=== PATIENT | male | born 1955 | race Caucasian/White ===

== ENCOUNTER → 2019-01-03 | Outpatient (CLI) | payer OTHER ==
[~2019-01-03] MED LIST: ADULT LOW DOSE81 MG PO; ALLOPURINOL 30300 M1; AMLODIPINE PO; BYSTOLIC10 MG; CARDURA4 MG; CHLORZOXAZONE500 MG; CLEOCIN HCL150 MG PO; DIOVAN320 MG; HYDROCODON-ACE1 EAC5; HYTRIN10 MG PO; KEFLEX250 M1 PO; LASIX 20 MG TAB20 MG; NEURONTIN 300300 M1; PERCOCET 5-3251 EACH PO; PERCOCET 7.5-31 EACH PO; PROCARDIA XL90 MG
[2019-01-03 15:53] LABS: ABSOLUTE BASOPHILS 0.1 thou/uL (0.0-0.2); ABSOLUTE EOSINOPHILS 0.1 thou/uL (0.0-0.7); ABSOLUTE LYMPHOCYTES 1.9 thou/uL (0.8-5.3); ABSOLUTE MONOCYTES 0.8 thou/uL (0.0-1.2); ABSOLUTE NEUTROPHILS 10.5 thou/uL (1.6-8.1); BASOPHILS 0.8 %; EOSINOPHILS 0.9 %; HEMATOCRIT 40.5 % (42.0-52.0); HEMOGLOBIN 13.8 gm/dL (14.0-18.0); LYMPHOCYTES 14.1 %; MCH 30.9 pg (26.0-34.0); MCV 90.8 fL (80.0-100.0); MONOCYTES 6.2 %; MPV 9.2 fl. (7.2-11.1); NUCLEATED RBCS 0 /100WBC; PLATELET COUNT* 207 thou/uL (150-400); RBC 4.46 mil/uL (4.50-6.00); RDW-CV 14.8 % (10.5-14.5); WBC 13.5 thou/uL (4.0-11.0)
[2019-01-03 16:11] LABS: ALBUMIN 3.7 g/dL (3.4-5.0); CALCIUM 9.4 mg/dL (8.5-10.1); CREATININE 1.5 mg/dL (0.6-1.3); POTASSIUM 3.9 mmol/L (3.5-5.1); TOTAL BILIRUBIN 0.9 mg/dL (<0.1-1.0); TOTAL PROTEIN 7.6 g/dL (6.4-8.2)
== END ==
LOC: M.LAB 15:30 → M.CT 16:00
PROVIDERS: Family Medicine
DX: I71.4 Abdominal aortic aneurysm, without rupture (principal); K76.0 Fatty (change of) liver, not elsewhere classified; N28.1 Cyst of kidney, acquired; R19.07 Generalized intra-abdominal and pelvic swelling, mass and lump; M47.816 Spondylosis without myelopathy or radiculopathy, lumbar region; M96.1 Postlaminectomy syndrome, not elsewhere classified; Z90.49 Acquired absence of other specified parts of digestive tract

== ENCOUNTER 2019-05-13 15:58 | Inpatient (IN) | payer OTHER ==
[~2019-05-13] VITALS: Ht 172.7 cm; Wt 93.9 kg
[~2019-05-13 15:58] MED LIST changes: -ALLOPURINOL 30300 M1; +ALLOPURINOL 30300 M1 PO; -BYSTOLIC10 MG; +BYSTOLIC10 MG PO; -CARDURA4 MG; +CARDURA4 MG PO; -HYDROCODON-ACE1 EAC5; +HYDROCODON-ACE1 EAC5 PO; -NEURONTIN 300300 M1; +NEURONTIN 300300 M1 PO
[2019-05-13 16:05] VITALS: BP 91/52
[2019-05-13] MEDS ORDERED: CBD (16:13)
[2019-05-13] MEDS ORDERED: DIOVAN320 MG PO (16:13)
[2019-05-13] MEDS ORDERED: OMEPRAZOLE40 MG PO (16:14)
[2019-05-13] MEDS ORDERED: NORVASC2.5 MG PO (16:14)
[2019-05-13 16:57] LABS: HEMATOCRIT 39.9 % (42.0-52.0); HEMOGLOBIN 13.7 gm/dL (14.0-18.0); MCH 30.3 pg (26.0-34.0); MCHC 34.3 g/dL (28.0-37.0); MCV 88.2 fL (80.0-100.0); MPV 10.9 fl. (7.2-11.1); NUCLEATED RBCS 0 /100WBC; PLATELET COUNT* 124 thou/uL (150-400); RBC 4.52 mil/uL (4.50-6.00); RDW-CV 15.6 % (10.5-14.5); WBC 9.4 thou/uL (4.0-11.0)
[2019-05-13 17:08] LABS: ANION GAP 13 mmol/L (7-16); BUN 78 mg/dL (7-18); CHLORIDE 90 mmol/L (98-107); CO2 20 mmol/L (21-32); CREATININE 2.7 mg/dL (0.6-1.3); POTASSIUM 4.3 mmol/L (3.5-5.1); SODIUM 123 mmol/L (136-145)
[2019-05-13 17:15] LABS: ALBUMIN 3.4 g/dL (3.4-5.0); ALKALINE PHOSPHATASE 99 U/L (46-116); SGOT 31 U/L (15-37); SGPT 46 U/L (30-65); TOTAL BILIRUBIN 0.8 mg/dL (<0.1-1.0); TOTAL PROTEIN 6.6 g/dL (6.4-8.2); TROPONIN-I LEVEL <0.06 ng/mL (<0.06)
[2019-05-13 17:19] LABS: GLUCOSE 630 mg/dL (70-99)
[2019-05-13 17:21] LABS: ABSOLUTE LYMPHOCYTES 0.2 thou/uL (0.8-5.3); ABSOLUTE NEUTROPHILS 9.2 thou/uL (1.6-8.1); PLATELET ESTIMATE ADEQUATE
[2019-05-13 20:47] LABS: URINE BILIRUBIN NEGATIVE (Negative); URINE BLOOD TRACE (Negative); URINE CLARITY CLEAR; URINE COLOR YELLOW; URINE GLUCOSE-RANDOM 3+ (Negative); URINE KETONES NEGATIVE (Negative); URINE LEUKOCYTES-REFLEX 1+ (Negative); URINE PROTEIN NEGATIVE (Negative); URINE UROBILINOGEN 0.2 E.U./dl (0.2-1.0)
[2019-05-13 20:50] LABS: URINE NITRITE-REFLEX POSITIVE (Negative)
[2019-05-13 20:55] LABS: SQUAMOUS 0-3 Few /LPF (0-3); URINE WBC-REFLEX 6-15 Few /HPF (0-5)
[2019-05-13 20:56] LABS: CASTS None Seen /LPF (None Seen); CRYSTALS None Seen /LPF (None Seen); URINE RBC 0-2 Rare /HPF (0-2)
[2019-05-13 23:31] VITALS: BP 96/47
[2019-05-14] VITALS (8 sets, daily range): BP systolic 90–138; BP diastolic 45–69
[2019-05-14 02:12] LABS: CALCIUM 8.6 mg/dL (8.5-10.1); CREATININE 2.4 mg/dL (0.6-1.3); PHOSPHORUS* 4.4 mg/dL (2.5-4.9); POTASSIUM 4.9 mmol/L (3.5-5.1)
--- NOTE | 2019-05-14 05:50 | NUR ---
RECIEVED PT FROM ER,ROOM AIR WITH INSULIN DRIP,ORIENTED AND WITH SCABS ON HIS RIGHT ALONZO.PT REFUSED TO SHOW HIS BACK SKIN.NOTED WITH NUMBNESS AND TINGLING SENSATION ON LOWER EXTRIMITIES.HE ALSO SELF CATHERIZATION USING STRAIGTH CATH BUT OF NOW HE USES THE COMMODE.SEEN HIS BACK SKIN, NO SKIN ISSUE.CONTINUE MONITORING ANG TOWARDS GOAL.NO DISTRESS NOTED.
[2019-05-14 06:21] LABS: ALBUMIN 2.9 g/dL (3.4-5.0); CALCIUM 8.8 mg/dL (8.5-10.1); MAGNESIUM 2.2 mg/dL (1.8-2.4); PHOSPHORUS* 3.7 mg/dL (2.5-4.9); POTASSIUM 4.1 mmol/L (3.5-5.1)
--- NOTE | 2019-05-14 10:53 | NUR ---
INITIAL ASSESSMENT: Pt evaluated for d/c planning needs. Reviewed chart and spoke with nurse and pt. Pt lives in house with spouse of 40 years and was independent with ADL's. Pt has been on disability for the past 30 years. Pt has walker and cane at home, but normally does not use walker. Pt has not had home health in the past. Pt plans on returning home on d/c from hospital. Will remain available to assist as needed.
--- NOTE | 2019-05-14 14:01 | NUR ---
PT TRANSFERRED TO ROOM 219 AT THIS TIME. ORIENTED TO ROOM. ALL CONCERNS ADDRESSED AT THIS TIME. CLWR. WCTM.
--- NOTE | 2019-05-14 16:50 | NUR ---
PT PROGRESSING TOWARDS GOALS THIS SHIFT. PT GIVEN DIABETES EDUCATION. PT DEMONSTRATED ABILITY TO ADMINISTER INSULIN TO SELF. PT EDUCATED ON SLIDING SCALE INSULIN. CONTINUE TO DIABETES EDUCATION. NO OTHER CONCERNS AT THIS TIME. CLWR. WCTM.
--- NOTE | 2019-05-14 18:30 | EKG ---
[place] [address] ELECTROCARDIOGRAM REPORT Name: HEATH LAWRENCE Room: [address] ADM IN M.R.#: [id number] Admission: 05/13/19 Attend Phys: Ashley Yao MD Discharge: Date of : 53 Report #: [id number] THIS REPORT FOR: //name// [facility] ED Test Date: 2019-05-13 Test Time: 17:56:15 Pat Name: HEATH LAWRENCE Department: Room: [facility] Gender: M Health Information Tech: JOSE J : 1955 Requested By: Isela Cabral Order Number: [id number] MD: Shade Babcock Measurements Intervals [place] Rate: 60 P: 21 FL: 193 QRS: -20 QRSD: 119 T: -18 QT: 431 QTc: 431 Interpretive Statements Sinus rhythm Left ventricular hypertrophy Inferior infarct, age indeterminate Anterior infarct, old Compared to ECG 11/10/2006 01:35:55 Sinus bradycardia no longer present Myocardial infarct finding still present Electronically Signed On 05-14-2019 18:30:30 CDT by Shade Babcock [email or web address] <ELECTRONICALLY SIGNED> By: Shade Babcock MD, FACC 05/14/19 1830 1756 1756 Shade Babcock MD, [facility] /EPI
[2019-05-15 02:10] LABS: GLYCOHEMOGLOBIN (HGB A1C) 13.4 % (4.8-5.6)
[2019-05-15 05:38] LABS: CREATININE 1.3 mg/dL (0.6-1.3); POTASSIUM 4.2 mmol/L (3.5-5.1)
--- NOTE | 2019-05-15 07:57 | NUR ---
PT IS ABLE TO COMMUNICATE HIS NEEDS TO STAFF EFFECTIVELY. HE HAS DENIED THE NEED FOR PAIN MEDICATION UP TO THIS TIME. ANSWERED SOME DIABETIS RELATED QUESTIONS LAST NIGHT; PT WOULD BENEFIT FROM MORE EXTENSIVE DM EDUCATION PRIOR TO DISCHARGE. MED/SURG STATUS. POSSBILE DISCHARGE TODAY; PT HAS STATED THAT "I NEED TO LEAVE TODAY".
[2019-05-15 08:00] VITALS: BP 123/65
[2019-05-15] MEDS ORDERED: NOVOLOG100 UNIT/1 SUBQ (08:41)
[2019-05-15] MEDS ORDERED: LANTUS SUBQ (08:41)
[2019-05-15 10:33] VITALS: BP 138/69
--- NOTE | 2019-05-15 11:33 | NUR ---
ASSUMED PT CARE. REPORT RECEIVED FROM NURSE. PT IS AOX4. MEDSURG STATUS. ACCUCHECK TAKEN . INSULIN GIVEN. DISCAHRE PENDING. DISCHARGE INSTRUCTIONS GIVEN. QUESTIONS ANSWERED. PT LEFT UNIT AT 1130 ACCOMAPNIED BY VOLUNTEER ON WHEELCHAIR AND .
--- NOTE | 2019-05-15 11:35 | NUR ---
SOME SCARS WERE DISCOVERED ON PT RIGHT LEG . PICTURES TAKEN AND PLACED IN CHART. PT STATES THAT SCARS HAVE BEEN THERE PRIOR TO ADMISSION BU HE HAPPENED TO SCRATCH HIS SKINS LAST NIGHT.
== END 2019-05-15 11:30 | disposition home or self-care (01) | DRG 637 ==
LOC: M.ERS 15:58 → M.TBA-ER 19:10 → M.ICU 22:02 → M.TBA-ER 22:02 → M.ICU 22:42 → M.2W 05-14 13:56
PROVIDERS: Internal Medicine; Nurse Practitioner Family; ADMIT Internal Medicine
DX: E11.10 Type 2 diabetes mellitus with ketoacidosis without coma (principal); G92 Toxic encephalopathy; N17.0 Acute kidney failure with tubular necrosis; E87.1 Hypo-osmolality and hyponatremia; E11.00 Type 2 diabetes mellitus with hyperosmolarity without nonketotic hyperglycemic-hyperosmolar coma (NKHHC); I10 Essential (primary) hypertension; E11.40 Type 2 diabetes mellitus with diabetic neuropathy, unspecified; G89.29 Other chronic pain; M54.9 Dorsalgia, unspecified; E86.9 Volume depletion, unspecified; R00.1 Bradycardia, unspecified; T50.995A Adverse effect of other drugs, medicaments and biological substances, initial encounter; Z79.899 Other long term (current) drug therapy; Z88.1 Allergy status to other antibiotic agents; Z87.81 Personal history of (healed) traumatic fracture; Z82.49 Family history of ischemic heart disease and other diseases of the circulatory system; Z80.42 Family history of malignant neoplasm of prostate; Z80.8 Family history of malignant neoplasm of other organs or systems; Y92.89 Other specified places as the place of occurrence of the external cause

== ENCOUNTER 2020-07-08 12:59 | Emergency (ER) | payer MEDICARE, OTHER ==
[~2020-07-08] VITALS: Ht 172.7 cm; Wt 93.4 kg
[~2020-07-08 12:59] MED LIST changes: +CBD; +DIOVAN320 MG PO; +LANTUS SUBQ; +NORVASC2.5 MG PO; +NOVOLOG100 UNIT/1 SUBQ; +OMEPRAZOLE40 MG PO
[2020-07-08 13:25] LABS: ABSOLUTE EOSINOPHILS 0.1 thou/uL (0.0-0.7); ABSOLUTE LYMPHOCYTES 1.4 thou/uL (0.8-5.3); ABSOLUTE MONOCYTES 0.3 thou/uL (0.0-1.2); ABSOLUTE NEUTROPHILS 4.8 thou/uL (1.6-8.1); BASOPHILS 0.4 %; HEMATOCRIT 38.7 % (42.0-52.0); HEMOGLOBIN 13.3 gm/dL (14.0-18.0); LYMPHOCYTES 21.5 %; MCHC 34.4 g/dL (28.0-37.0); MCV 84.4 fL (80.0-100.0); MONOCYTES 4.3 %; MPV 9.1 fl. (7.2-11.1); NUCLEATED RBCS 0 /100WBC; PLATELET COUNT* 172 thou/uL (150-400); POLYS 71.8 %; RBC 4.59 mil/uL (4.50-6.00); RDW-CV 16.9 % (10.5-14.5); WBC 6.7 thou/uL (4.0-11.0)
[2020-07-08 13:33] LABS: CALCIUM 9.4 mg/dL (8.5-10.1); CREATININE 1.7 mg/dL (0.6-1.3); POTASSIUM 4.4 mmol/L (3.5-5.1)
[2020-07-08 13:43] LABS: APTT 23.9 Seconds (25.0-31.3); INR 1.1; PROTIME 11.1 Seconds (9.20-11.50)
[2020-07-08 13:46] LABS: ALBUMIN 4.1 g/dL (3.4-5.0); MAGNESIUM 1.9 mg/dL (1.8-2.4); TOTAL BILIRUBIN 0.4 mg/dL (<0.1-1.0); TOTAL PROTEIN 7.7 g/dL (6.4-8.2)
--- NOTE | 2020-07-08 14:39 | EKG ---
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: [facility] : 1955 Requested By: Ronal Raza Order Number: [id number] MD: Scottie Wei Measurements Intervals [place] Rate: 48 P: 0 MD: 218 QRS: 4 QRSD: 117 T: -75 QT: 495 QTc: 443 Interpretive Statements Sinus bradycardia artifact noted Nonspecific intraventricular conduction delay Anterior infarct, old Borderline repolarization abnormality Compared to ECG 05/13/2019 17:56:15 Sinus rhythm no longer present Left ventricular hypertrophy no longer present Myocardial infarct finding still present Electronically Signed On 07-08-2020 14:39:39 CDT by Scottie Wei [email or web address] <ELECTRONICALLY SIGNED> By: Scottie Wei MD, [facility] 07/08/20 1439 1304 1304 Scottie Wei MD, [facility] /EPI
[2020-07-08 15:42] VITALS: BP 139/75
--- NOTE | 2020-07-09 10:46 | EKG ---
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1955 Requested By: Ronal Raza Order Number: [id number] MD: Scottie Wei Measurements Intervals [place] Rate: 46 P: 47 AL: 234 QRS: -2 QRSD: 119 T: -45 QT: 454 QTc: 398 Interpretive Statements Sinus bradycardia Prolonged AL interval Anterior infarct, old Nonspecific T abnormalities, inferior leads Compared to ECG 07/08/2020 13:04:38 First degree AV block now present Myocardial infarct finding still present Electronically Signed On 07-09-2020 10:46:51 CDT by Scottie Wei [email or web address] <ELECTRONICALLY SIGNED> By: Scottie Wei MD, [facility] 07/09/20 1046 1453 1453 Scottie Wei MD, [facility] /EPI
== END 2020-07-08 15:42 | disposition home or self-care (01) ==
LOC: M.ERS 12:59
PROVIDERS: Family Medicine
DX: R07.89 Other chest pain (principal); I10 Essential (primary) hypertension; E11.40 Type 2 diabetes mellitus with diabetic neuropathy, unspecified; G62.9 Polyneuropathy, unspecified; Z79.4 Long term (current) use of insulin; Z96.651 Presence of right artificial knee joint; Z88.1 Allergy status to other antibiotic agents

== ENCOUNTER → 2021-01-28 | Outpatient (CLI) | payer OTHER ==
[2021-01-28 11:25] LABS: POTASSIUM 4.1 mmol/L (3.5-5.1)
== END ==
LOC: M.LAB 05:38
PROVIDERS: ATTEND Anesthesiology
DX: E87.6 Hypokalemia (principal); E11.9 Type 2 diabetes mellitus without complications

== ENCOUNTER 2021-04-28 10:17 | Emergency (ER) | payer OTHER ==
[~2021-04-28] VITALS: Ht 172.7 cm; Wt 95.3 kg
[2021-04-28] MEDS ORDERED: HUMALOG100 UNIT/1 SUBQ (10:42)
[2021-04-28] MEDS ORDERED: VALSARTAN-HCTZ1 EAC3 PO (10:42)
[2021-04-28] MEDS ORDERED: CARDURA XL4 MG PO (10:43)
[2021-04-28] MEDS ORDERED: SPIRONOLACTONE25 M1 PO (10:43)
[2021-04-28] MEDS ORDERED: HYDRALAZINE 2525 MG PO (10:43)
[2021-04-28 10:49] LABS: ABSOLUTE BASOPHILS 0.1 thou/uL (0.0-0.2); ABSOLUTE EOSINOPHILS 0.1 thou/uL (0.0-0.7); ABSOLUTE LYMPHOCYTES 1.1 thou/uL (0.8-5.3); ABSOLUTE MONOCYTES 0.5 thou/uL (0.0-1.2); ABSOLUTE NEUTROPHILS 4.6 thou/uL (1.6-8.1); EOSINOPHILS 2.4 %; HEMATOCRIT 38.3 % (42.0-52.0); HEMOGLOBIN 13.6 gm/dL (14.0-18.0); MCH 31.3 pg (26.0-34.0); MCHC 35.6 g/dL (28.0-37.0); MCV 87.9 fL (80.0-100.0); MONOCYTES 7.4 %; MPV 9.5 fl. (7.2-11.1); NUCLEATED RBCS 0 /100WBC; PLATELET COUNT* 162 thou/uL (150-400); POLYS 72.2 %; RBC 4.36 mil/uL (4.50-6.00); RDW-CV 15.3 % (10.5-14.5); WBC 6.3 thou/uL (4.0-11.0)
[2021-04-28 11:00] LABS: CALCIUM 8.6 mg/dL (8.5-10.1); CREATININE 1.2 mg/dL (0.6-1.3); POTASSIUM 4.5 mmol/L (3.5-5.1)
[2021-04-28 11:10] LABS: ALBUMIN 3.5 g/dL (3.4-5.0); MAGNESIUM 1.8 mg/dL (1.8-2.4); TOTAL BILIRUBIN 0.5 mg/dL (<0.1-1.0); TOTAL PROTEIN 7.1 g/dL (6.4-8.2)
[2021-04-28] MEDS ORDERED: HYDROCODON-ACE1 EAC7 PO (13:42)
[2021-04-28] MEDS ORDERED: PREDNISONE 10 M10 M1 PO (13:45)
[2021-04-28] MEDS ORDERED: ACYCLOVIR 800800 MG PO (13:45)
[2021-04-28 14:12] VITALS: BP 140/67
--- NOTE | 2021-04-28 16:35 | EKG ---
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 <ELECTRONICALLY SIGNED> By: Larry Rodriguez MD, [facility] 04/28/21 1635 1021 1021 Larry Rodriguez MD, [facility] /EPI
== END 2021-04-28 14:13 | disposition home or self-care (01) ==
LOC: M.ERS 10:17
PROVIDERS: Emergency Medicine Emergency Medical Services
DX: B02.9 Zoster without complications (principal); R20.2 Paresthesia of skin; R06.02 Shortness of breath; I10 Essential (primary) hypertension; Z98.890 Other specified postprocedural states; Z88.1 Allergy status to other antibiotic agents

== ENCOUNTER 2021-05-13 06:55 | Emergency (ER) | payer OTHER ==
[~2021-05-13] VITALS: Ht 172.7 cm; Wt 95.3 kg
[~2021-05-13 06:55] MED LIST changes: +ACYCLOVIR 800800 MG PO; +CARDURA XL4 MG PO; +HUMALOG100 UNIT/1 SUBQ; +HYDRALAZINE 2525 MG PO; +HYDROCODON-ACE1 EAC7 PO; +PREDNISONE 10 M10 M1 PO; +SPIRONOLACTONE25 M1 PO; +VALSARTAN-HCTZ1 EAC3 PO
[2021-05-13] MEDS ORDERED: CARVEDILOL25 MG PO (07:03)
[2021-05-13] MEDS ORDERED: NOVOLIN 70100 UNIT/1 (07:03)
[2021-05-13] MEDS ORDERED: SPIRONOLACTONE25 M1 PO (07:04)
[2021-05-13] MEDS ORDERED: HYDRALAZINE 2525 MG PO (07:04)
[2021-05-13] MEDS ORDERED: CEPHALEXIN500 MG PO (07:21)
[2021-05-13] MEDS ORDERED: PERCOCET 5-3251 EACH PO (07:21)
[2021-05-13 08:29] VITALS: BP 126/68
== END 2021-05-13 08:30 | disposition home or self-care (01) ==
LOC: M.ERS 06:55
DX: J02.9 Acute pharyngitis, unspecified (principal); Z20.822 Contact with and (suspected) exposure to COVID-19; R07.89 Other chest pain; I10 Essential (primary) hypertension; Z88.1 Allergy status to other antibiotic agents

== ENCOUNTER 2021-10-18 16:01 | Inpatient (IN) | payer OTHER ==
[~2021-10-18] VITALS: Ht 172.7 cm; Wt 95.3 kg
[~2021-10-18 16:01] MED LIST changes: +CARVEDILOL25 MG PO; +CEPHALEXIN500 MG PO; -NEURONTIN 300300 M1 PO; +NEURONTIN 300M300 M2 PO; +NOVOLIN 70100 UNIT/1
[2021-10-18 16:39] VITALS: BP 119/64
[2021-10-18 17:45] LABS: ABSOLUTE LYMPHOCYTES 0.4 thou/uL (0.8-5.3); ABSOLUTE MONOCYTES 0.1 thou/uL (0.0-1.2); ABSOLUTE NEUTROPHILS 2.9 thou/uL (1.6-8.1); BASOPHILS 0.2 %; EOSINOPHILS 0.1 %; HEMOGLOBIN 12.7 gm/dL (14.0-18.0); LYMPHOCYTES 12.5 %; MCH 29.1 pg (26.0-34.0); MCHC 34.2 g/dL (28.0-37.0); MCV 85.2 fL (80.0-100.0); MONOCYTES 4.1 %; MPV 9.4 fl. (7.2-11.1); NUCLEATED RBCS 0 /100WBC; PLATELET COUNT* 138 thou/uL (150-400); POLYS 83.1 %; RBC 4.34 mil/uL (4.50-6.00); RDW-CV 15.4 % (10.5-14.5); WBC 3.5 thou/uL (4.0-11.0)
[2021-10-18 17:50] LABS: CALCIUM 8.3 mg/dL (8.5-10.1); CREATININE 1.9 mg/dL (0.6-1.3); POTASSIUM 4.6 mmol/L (3.5-5.1)
[2021-10-18 17:55] LABS: TOTAL BILIRUBIN 0.6 mg/dL (<0.1-1.0); TOTAL PROTEIN 7.1 g/dL (6.4-8.2)
[2021-10-18 19:15] LABS: BE -3.4 mmol/L (-2 to +3); PCO2 34.3 mmHg (35.0-45.0); PO2 65.9 mmHg (75.0-100.0); pH 7.393 (7.340-7.450)
[2021-10-18] MEDS ORDERED: NEURONTIN300 MG PO (22:49)
[2021-10-18] MEDS ORDERED: HUMALOG100 UNIT/1 SUBQ (22:52)
[2021-10-18 23:57] LABS: URINE BILIRUBIN NEGATIVE (Negative); URINE BLOOD NEGATIVE (Negative); URINE CLARITY CLEAR; URINE COLOR YELLOW; URINE GLUCOSE-RANDOM NEGATIVE (Negative); URINE KETONES NEGATIVE (Negative); URINE LEUKOCYTES TRACE (Negative); URINE NITRITE POSITIVE (Negative); URINE PROTEIN TRACE (Negative); URINE UROBILINOGEN 0.2 E.U./dl (0.2-1.0)
[2021-10-19] VITALS (9 sets, daily range): BP systolic 115–180; BP diastolic 54–79
[2021-10-19 00:57] LABS: CASTS None Seen /LPF (None Seen); SQUAMOUS 0-3 Few /LPF (0-3)
[2021-10-19 00:58] LABS: URINE WBC 6-15 Few /HPF (0-5)
[2021-10-19 00:59] LABS: BACTERIA >30 Many /HPF (None Seen); CRYSTALS None Seen /LPF (None Seen); URINE RBC None Seen /HPF (0-2)
--- NOTE | 2021-10-19 06:13 | NUR ---
NOTIFIED DR. ORELLANA OF PATIENT INCREASED O2 NEEDS. PT REQUIRING 4-6L NC OVERNIGHT. AT 0530, PT'S O2 SAT BEGAN TO DROP IN THE LOW 80'S. O2 INCREASED UP TO 15L ON HFC WITHOUT MUCH IMPROVEMENT. CURENTLY ON 15L NRB 02 SAT 94%. NEW ORDERS RECEIVED.
[2021-10-19 06:48] LABS: BE -5.7 mmol/L (-2 to +3); PCO2 35.7 mmHg (35.0-45.0); pH 7.345 (7.340-7.450)
[2021-10-19 07:43] LABS: CREATININE 1.5 mg/dL (0.6-1.3); POTASSIUM 4.6 mmol/L (3.5-5.1)
[2021-10-19 07:48] LABS: ALBUMIN 2.8 g/dL (3.4-5.0); TOTAL BILIRUBIN 0.5 mg/dL (<0.1-1.0); TOTAL PROTEIN 7.1 g/dL (6.4-8.2)
[2021-10-19 08:49] LABS: INR 1.1; PROTIME 11.4 Seconds (9.20-11.50)
[2021-10-19 09:00] LABS: HEMATOCRIT 38.1 % (42.0-52.0); HEMOGLOBIN 12.8 gm/dL (14.0-18.0); MCHC 33.5 g/dL (28.0-37.0); MCV 86.5 fL (80.0-100.0); MPV 9.3 fl. (7.2-11.1); RBC 4.41 mil/uL (4.50-6.00); RDW-CV 15.1 % (10.5-14.5); WBC 3.7 thou/uL (4.0-11.0)
--- NOTE | 2021-10-19 10:07 | NUR ---
Pt is admitted to the hospital on 10/18/21 with Covid 19/Respiratory Failure. Called [facility] to complete assessment. Pt and live in a home with no steps to enter. Pt ambulated with a cane due to having a previous spinal cord injury 30 years ago. Pt was independent with ADL's. Pt has no hx of SNF. Pt has a hx of home health but is unable to recall the name of the agency as he has a hx of knee replacment that became infected at [facility]. Pt has a walker, cane, shower chair, and stool riser. Pt fills his prescriptions at the [facility] [address] Pt has a PCP but didn't know when he last had an appointment. CM to continue to follow patient for discharge planning.
[2021-10-20 01:24] LABS: BE -3.4 mmol/L (-2 to +3); PCO2 34.3 mmHg (35.0-45.0); pH 7.398 (7.340-7.450)
[2021-10-20 01:29] LABS: PO2 58.3 mmHg (75.0-100.0)
[2021-10-20 05:12] VITALS: BP 140/72
--- NOTE | 2021-10-20 05:31 | NUR ---
PT ON NONREBREATHER MASK, RT TRIED TO CHANGE TO HEATED HIGH FLOW AND BIPAP BUT PT REFUSED AT FIRST, TOOK A LOT OF CONVINCING TO LEAVE HEATED HIGH FLOW ON. CURRENTLY HEATED HIGH FLOW IS ON BUT ALSO HAS THE NONREBREATHER MASK OVER IT FOR COMFORT. ATIVAN AND MORPHINE GIVEN FOR ANXIETY AND INCREASE WORK OF BREATHING. PT DID GET CONFUSE ONE TIME AND REMOVED HIS IV. LORENZO PLACE DUE TO CHRONIC RETENTION. STAT XRAY AND ABG DONE. PULMONOLOGY IS CONSULTED. REMAINS FREE FROM INJURY. DENIES PAIN.
[2021-10-20 06:04] LABS: % SATURATION 9 % (20-39); IRON 23 ug/dL (50-175)
[2021-10-20 08:22] VITALS: BP 146/74
[2021-10-20 12:00] VITALS: BP 145/70
--- NOTE | 2021-10-20 13:29 | NUR ---
CM FOLLOWUP PT NOT MED CLEAR AND ON HIFLOW O2. CM TO FOLLOW FOR FUTURE DC PLANNING.
[2021-10-20 16:00] VITALS: BP 104/71
--- NOTE | 2021-10-20 20:37 | NUR ---
Assumed care at 0730. Pt is alert and oriented. Assessment was done. Pt's brought him some ivenmectin. This medication was taken to the pharmacy and the ticket was placed in the patient's chart. Will continue to provide care for the patient.
[2021-10-20 20:39] LABS: HEMATOCRIT 38.9 % (42.0-52.0); HEMOGLOBIN 13.2 gm/dL (14.0-18.0); MCH 28.6 pg (26.0-34.0); MCV 84.3 fL (80.0-100.0); MPV 8.5 fl. (7.2-11.1); NUCLEATED RBCS 0 /100WBC; PLATELET COUNT* 190 thou/uL (150-400); RBC 4.62 mil/uL (4.50-6.00); RDW-CV 15.3 % (10.5-14.5); WBC 5.3 thou/uL (4.0-11.0)
[2021-10-20 20:59] VITALS: BP 138/68
[2021-10-20 21:29] LABS: ALBUMIN 2.8 g/dL (3.4-5.0); CALCIUM 8.3 mg/dL (8.5-10.1); CREATININE 1.4 mg/dL (0.6-1.3); POTASSIUM 4.5 mmol/L (3.5-5.1); TOTAL BILIRUBIN 0.4 mg/dL (<0.1-1.0); TOTAL PROTEIN 6.5 g/dL (6.4-8.2)
[2021-10-20 21:35] LABS: ABSOLUTE LYMPHOCYTES 0.4 thou/uL (0.8-5.3); ABSOLUTE MONOCYTES 0.4 thou/uL (0.0-1.2); ABSOLUTE NEUTROPHILS 4.5 thou/uL (1.6-8.1)
[2021-10-20 21:36] LABS: ANISOCYTOSIS Occasional; PLATELET ESTIMATE ADEQUATE
--- NOTE | 2021-10-20 23:53 | NUR ---
PT REFUSES BIPAP.
[2021-10-21] VITALS (7 sets, daily range): BP systolic 110–157; BP diastolic 67–82
[2021-10-21 05:20] LABS: ABSOLUTE LYMPHOCYTES 0.3 thou/uL (0.8-5.3); ABSOLUTE MONOCYTES 0.1 thou/uL (0.0-1.2); ABSOLUTE NEUTROPHILS 3.3 thou/uL (1.6-8.1); BASOPHILS 0.1 %; HEMATOCRIT 39.4 % (42.0-52.0); HEMOGLOBIN 13.1 gm/dL (14.0-18.0); LYMPHOCYTES 8.8 %; MCH 28.8 pg (26.0-34.0); MCHC 33.3 g/dL (28.0-37.0); MCV 86.4 fL (80.0-100.0); MONOCYTES 3.8 %; MPV 8.5 fl. (7.2-11.1); NUCLEATED RBCS 0 /100WBC; PLATELET COUNT* 184 thou/uL (150-400); POLYS 87.3 %; RBC 4.56 mil/uL (4.50-6.00); RDW-CV 15.5 % (10.5-14.5); WBC 3.7 thou/uL (4.0-11.0)
[2021-10-21 05:33] LABS: ALBUMIN 2.6 g/dL (3.4-5.0); CALCIUM 8.2 mg/dL (8.5-10.1); CREATININE 1.4 mg/dL (0.6-1.3); POTASSIUM 4.4 mmol/L (3.5-5.1); TOTAL BILIRUBIN 0.5 mg/dL (<0.1-1.0); TOTAL PROTEIN 6.9 g/dL (6.4-8.2)
--- NOTE | 2021-10-21 05:54 | NUR ---
PT IS ABLE TO COMMUNICATE HIS NEEDS TO STAFF WITH MINOR DIFFICULTY; HE BECOMES SOA VERY QUICKLY WHEN TALKING. HE HAS DENIED THE NEED FOR PAIN MEDICATION UP TO THIS TIME. LORENZO PATENT UP TO THIS TIME. HHF WITH NRB MASK MAINTAINED; PT TOLERATING.
--- NOTE | 2021-10-21 12:56 | 2DMMODE ---
[place] [address] 2 D/M-MODE ECHOCARDIOGRAM Name: HEATH LAWRENCE Room: [address] IN .R.#: [id number] Admission: 10/18/21 Attend Phys: Jason Fasutin Discharge: Date of : 53 Date of Service: 10/21/21 1256 Report #: [id number] THIS REPORT FOR: cc: Mini Orellana MD, Katrina MD Liston, Michael J. MD [facility] ~ APPROVED REPORT Study performed: 10/21/2021 11:30:18 EXAM: Comprehensive 2D, Doppler, and color-flow Echocardiogram Patient Location: Bedside BSA: 2.07 HR: 51 bpm BP: 138/68 mmHg Other Information Study Quality: Adequate Indications Dyspnea Covid 2D Dimensions IVSd: 25.89 (7-11mm) LVOT Diam: 23.90 (18-24mm) LVDd: 45.17 mm PWd: 18.42 (7-11mm) Ascending Ao: 38.52 (22-36mm) LVDs: 34.60 (25-40mm) Aortic Root: 33.37 mm Volumes Left Atrial Volume (Systole) LA ESV Index: 66.70 mL/m2 Aortic Valve AoV Peak Clive.: 1.51 m/s AO Peak Gr.: 9.13 mmHg LVOT Max P.17 mmHg AO Mean Gr.: 5.51 mmHg LVOT Mean P.36 mmHg LVOT Max V: 1.24 m/s AO V2 VTI: 35.13 cm LVOT Mean V: 0.85 m/s OLIVA (VTI): 3.43 cm2 LVOT V1 VTI: 26.89 [place] [address] 2 D/M-MODE ECHOCARDIOGRAM Name: HEATH LAWRENCE Room: [address] IN .R.#: [id number] Admission: 10/18/21 Attend Phys: Jason Faustin Discharge: Date of : 53 Date of Service: 10/21/21 1256 Report #: [id number] E/A Ratio: 1.19 MV Decel. Time: 258.99 ms MV E Max Clive.: 0.54 m/s MV PHT: 75.11 ms MVA (PHT): 2.93 cm2 Pulmonary Valve PV Peak Clive.: 1.08 m/s PV Peak Gr.: 4.63 mmHg Tricuspid Valve RAP Estimate: 5.00 mmHg TR Peak Gr.: 8.60 mmHg RVSP: 13.60 mmHg PA Pressure: 13.60 mmHg Left Ventricle The left ventricle is normal size. There is normal LV segmental wall motion. Moderate concentric left ventricular hypertrophy. Left ventricular systolic function is normal. LVEF is 55-60%. Transmitral Doppler flow pattern suggests impaired LV relaxation. Right Ventricle The right ventricle is normal size. The right ventricular systolic function is normal. Atria Left atrium is moderately dilated. Interatrial septum not well visualized. Right atrium is mildly dilated. Aortic Valve The Aortic valve is sclerotic. Mild aortic regurgitation. No hemodynamically significant valvular aortic stenosis. Mitral Valve The mitral valve is normal in structure. There is no mitral valve regurgitation noted. No evidence of mitral valve stenosis. Tricuspid Valve The tricuspid valve is normal in structure. Trace tricuspid regurgitation. Pulmonic Valve The pulmonary valve is normal in structure. There is no pulmonic valvular regurgitation. Great Vessels The aortic root is normal in size. The [place] [address] 2 D/M-MODE ECHOCARDIOGRAM Name: HEATH LAWRENCE Room: [address] IN [facility]#: [id number] Admission: 10/18/21 Attend Phys: Jason Faustin Discharge: Date of : 53 Date of Service: 10/21/21 1256 Report #: [id number] dilated. (3.85 cm). IVC is normal in size and collapses >50% with inspiration. Pericardium There is no pericardial effusion. <Conclusion> The left ventricle is normal size. Moderate concentric left ventricular hypertrophy. Left ventricular systolic function is normal. LVEF is 55-60%. Transmitral Doppler flow pattern suggests impaired LV relaxation. Left atrium is moderately dilated. Right atrium is mildly dilated. The Aortic valve is sclerotic. Mild aortic regurgitation. Trace tricuspid regurgitation. IVC is normal in size and collapses >50% with inspiration. The ascending aorta is borderline dilated. (3.85 cm). <ELECTRONICALLY SIGNED> By: Shade Babcock MD, FACC 10/21/21 1256 1256 1256 Shade Babcock MD, FACC /INF
--- NOTE | 2021-10-21 16:39 | NUR ---
CM FOLLOWUP PT NOT MED CLEAR AND ON HIFLOW AND NRB. CM TO FOLLOW FOR FUTURE DC PLANNING.
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
--- NOTE | 2021-10-22 00:59 | NUR ---
AFTER APROX 3 HRS PT REFUSED TO WEAR AVAPS AFTER ROMIVING SEVERAL TIMES. PLACED BACK ON HHF AND NON REBREATHER MASK TO MAINTAIN SAT'S GREATER THAN 88%.
[2021-10-22 04:30] VITALS: BP 140/64
[2021-10-22 04:43] LABS: ALBUMIN 2.5 g/dL (3.4-5.0); CALCIUM 8.1 mg/dL (8.5-10.1); CREATININE 1.5 mg/dL (0.6-1.3); MAGNESIUM 2.3 mg/dL (1.8-2.4); POTASSIUM 3.8 mmol/L (3.5-5.1); TOTAL BILIRUBIN 0.5 mg/dL (<0.1-1.0)
[2021-10-22 05:00] LABS: ABSOLUTE LYMPHOCYTES 0.3 thou/uL (0.8-5.3); ABSOLUTE MONOCYTES 0.3 thou/uL (0.0-1.2); ABSOLUTE NEUTROPHILS 5.2 thou/uL (1.6-8.1); BASOPHILS 0.1 %; EOSINOPHILS 0.1 %; HEMATOCRIT 41.2 % (42.0-52.0); HEMOGLOBIN 13.3 gm/dL (14.0-18.0); LYMPHOCYTES 4.9 %; MCH 29.1 pg (26.0-34.0); MCHC 32.3 g/dL (28.0-37.0); MCV 90.3 fL (80.0-100.0); MPV 8.9 fl. (7.2-11.1); NUCLEATED RBCS 0 /100WBC; PLATELET COUNT* 193 thou/uL (150-400); POLYS 89.9 %; RBC 4.56 mil/uL (4.50-6.00); RDW-CV 15.6 % (10.5-14.5); WBC 5.8 thou/uL (4.0-11.0)
[2021-10-22 08:00] VITALS: BP 125/74
--- NOTE | 2021-10-22 08:13 | NUR ---
Alert and oriented x 3 at start of shift. We discussed how important it was for him to wear his bipap. He stated that he wanted anxiety med and I ddi give ativan at 2100. By 2300 he was confused and taking off his monitor leads and dipping them in water. He removed his O2 finger probe. His O2 began to decrease very quickly and a rapid response was initiated and was said that he should be given something to help relax hi so the he will keep the bipap on. Dr Sun did order zyprexa IM and it did help. Most of the shift hehas had no clothes on. I have struggled to keep the bipap on and his leads. Report given this am and he is up trying to get dressed.
[2021-10-22 08:50] LABS: BE -3.2 mmol/L (-2 to +3); PCO2 31.5 mmHg (35.0-45.0); pH 7.423 (7.340-7.450)
[2021-10-22 09:14] LABS: PO2 59.5 mmHg (75.0-100.0)
[2021-10-22 12:00] VITALS: BP 146/75
--- NOTE | 2021-10-22 16:23 | NUR ---
CM FOLLOWUP PT NOT MED CLEAR AND ON 55L O2. PT SEEKING TO DC HOME WITH WHEN MED CLEAR. PT'S TO BRING DPOA PAREWORK TO [facility].
[2021-10-22 18:08] VITALS: BP 126/78
[2021-10-22 21:20] VITALS: BP 145/77
--- NOTE | 2021-10-22 23:49 | NUR ---
REPORT FROM DAYS REVEALS PT HAS HAD NO OUTPUT VIA CATHETER FOR DAY SHIFT. PT DENIED PAIN IN BLADDER AND CATHETER FLUSHED WITHOUT DIFFICULTY. BALLOON WAS UNINFLATED AND CATHETER WAS ADVANCED WITH NO OUTPUT AND WHEN I WENT TO REINFLATE BALLOON PT HAD SOME DISCOMFORT WITH BURNING SENSATION. HE STRAIGHT CATHS AT HOME AND REQUESTED FOR CAHTERTER TO BE REMOVED AND HE WOULD STRAIGHT CATH HIMSELF TO SEE IF THIS RELIEVED DISCOMFORT. LORENZO REMOVED WITHOUT INCIDENT, BALOON INFLATED PROPERLY, PT STRAIGHT CATHED AND GOT APPROX 650 OUT. POST VOID SCAN REVEALS 0mL IN BLADDER AT THIS TIME
[2021-10-23] VITALS: BP 154/77
--- NOTE | 2021-10-23 01:15 | NUR ---
PT TELE MONITOR WAS OFF SO I WENT TO ROOM TO ASSESS, PT SITTING ON BEDSIDE AND HAD PULLED MONITOR OFF, PULLED IV OUT AND WAS DISORIENTED. HHF CANULA WAS PLACED CORRECTLY INTO NOSE AND LEADS REPLACED. PT WAS BLOODY FROM IV. HEMOSTASIS ACHIEVED AND PT CLEANED UP. BEDRAILS X4 UP AND BED ALARM ON FOR PT SAFETY. PT HR 45-50 AND SAT>88 ON 60LHHF @100% AND NRB@15L OVER IT.
[2021-10-23 04:00] VITALS: BP 147/87
[2021-10-23 05:39] LABS: ABSOLUTE LYMPHOCYTES 0.4 thou/uL (0.8-5.3); ABSOLUTE MONOCYTES 0.4 thou/uL (0.0-1.2); BASOPHILS 0.2 %; HEMATOCRIT 38.3 % (42.0-52.0); HEMOGLOBIN 12.9 gm/dL (14.0-18.0); LYMPHOCYTES 5.3 %; MCH 28.5 pg (26.0-34.0); MCHC 33.7 g/dL (28.0-37.0); MONOCYTES 6.5 %; MPV 8.6 fl. (7.2-11.1); NUCLEATED RBCS 0 /100WBC; PLATELET COUNT* 191 thou/uL (150-400); RBC 4.52 mil/uL (4.50-6.00); WBC 6.9 thou/uL (4.0-11.0)
--- NOTE | 2021-10-23 05:41 | NUR ---
PT WAS AO X4 AT START OF SHIFT HE STARTED DESATTING AND WAS THEN CONFUSED THINKING HE WAS AT HOME. PT BECAME DISORIENTED AND TOOK MASKS OFF CAUSING HIM TO DESAT FURTHER. WHEN VERBAL COMMANDS DID NOT WORK, RESTRIANTS WERE ORDERED AND PLACED. PT RESTED FOR A COUPLE HOURS WITH SATS IN APPROPRIATE RANGE. PT IS ON HHF 60L AT 100% WITH NRB @ 16L OVER. HE REFUSES BIPAP. LABS DRAWN VIA PICC WITHOUT PROBLEM. PT REASSURED HE IS DOING WELL. BED ALARM ON FOR PT SAFETY.
[2021-10-23 05:59] LABS: MCV 84.6 fL (80.0-100.0)
[2021-10-23 06:14] LABS: ALBUMIN 2.5 g/dL (3.4-5.0); CALCIUM 8.5 mg/dL (8.5-10.1); CREATININE 1.5 mg/dL (0.6-1.3); MAGNESIUM 2.4 mg/dL (1.8-2.4); POTASSIUM 3.7 mmol/L (3.5-5.1); TOTAL BILIRUBIN 0.5 mg/dL (<0.1-1.0); TOTAL PROTEIN 6.3 g/dL (6.4-8.2)
--- NOTE | 2021-10-23 06:59 | NUR ---
I CALLED BALBINA THIS AM TO UPDATE HER ON HIS CONDITION OVERNIGHT AND DISCUSS MEDICATIONS AND TREATMENT. SHE WOULD LIKE A CALL FROM THE PHYSICIAN TODAY.
[2021-10-23 07:45] VITALS: BP 165/77
--- NOTE | 2021-10-23 08:42 | NUR ---
Assumed care of patient at 1715. patient is resting at present, but is sedated. Remains confused.
--- NOTE | 2021-10-23 11:08 | NUR ---
AT 1030 BLADDER SCAN PATIENT. 769ML URINE IN BLADDER. SIT AT BEDSIDE AND TRIED TO URINATE. UNABLE TO. DOES DRIBBLE SOME WHEN HE COUGHS. DR CHUNG HERE. PATIENT IS UNRESTRAINED OF 929. PATIENT FORGETS WHERE HE IS SOMETIMES, BUT IS COOPERATIVE AND WANTS TO CALL HIS . UPDATED DR BRIZUELA IN REGARD TO HIS HIGH FLOW TRIAL THIS AM. PATIENT DESATS T O 83-85% WHEN ON HIGH FLOW AND HR WAS 45. DR BRIZUELA WILL PLACE ORDERS. PATIENT WAS INCONTINENT OF LIQUID BROWN STOOL.
[2021-10-23 12:00] VITALS: BP 150/82
--- NOTE | 2021-10-23 13:30 | NUR ---
AT [address] CHUNG HERE AND CHANGED PATIENT TO 10 LITER PER NC. PATIENTS O2 SAT WAS 94% FOR A SHORT WHILE. PATIENT WAS ENCOURAGED TO DEEP BREATHE. PTS O2 SAT DROPPED TO 70'S. RT CALLED AND PATIENT PLACED ON HIGH FLOW NC AT 100%. O2 SAT AT 88% AFTER PATIENT RESTED.
--- NOTE | 2021-10-23 13:32 | NUR ---
HIGH FLOW NC AT 1312. DID CALL AND UPDATE DR CHUNG.
[2021-10-23 16:00] VITALS: BP 121/85
--- NOTE | 2021-10-23 19:05 | NUR ---
AT [address] CHUNG CALLED FOR AN UPDATE ON PATIENT. PATIENT REMAINS ON HIGH FLOW NC AND TOLERATING WELL. O2 SATS HIGH 80'S, AND CONTINUE TO MONITOR CLOSELY. PATIENT IS SLEEPY, AND DOES NOT EAT VERY MUCH. GIVE PATIENT SIPS OF WATER. MAINLY GIVE PO FLUIDS WITH MEDS. PATIENT HAS PIC RIGHT UPPER ARM. GIVIING ANTIBIOTICS, REMDESIVIR, AND 0.9NS CARRIER AT 25ML PER HOUR. GOOD URINARY OUTPUT. DID UPDATE FAMILY, AND DID CALL AND PATIENT TALKED A LITTLE. ENCOURAGED PATIENT TO TAKE DEEP BREATHS. HE IS TIRED, BUT MAINTAINING O2 SATS.
[2021-10-23 21:00] VITALS: BP 145/78
[2021-10-24 01:20] VITALS: BP 146/89
[2021-10-24 04:00] VITALS: BP 146/81
--- NOTE | 2021-10-24 04:51 | NUR ---
FOUND PT VERY CONFUSED AND RESTLESS WITH BLOOD AND BOWEL ALL OVER HIM. PT PULLED OUT O2, TORE PICC IN HALF. LORENZO IS BLEEDING FROM PULLING ON IT. PT HAS CUTS AND WOUNDS ALL OVER HIS LEGS. PT IS VERY CONFUSED. DR RAMIREZ NOTIFIED. PT GIVEN IM HALDOL.
--- NOTE | 2021-10-24 06:54 | NUR ---
Confused all of this shift. He has pulled on lines and pulled off O2. He desats very quickly. He has had BM's x 3,they are liquid and brown. This am he pulled on his santiago and caused to have some blood tinged urine. Stat lock was reapplied x 2. He pulled off the end of one of his ports and blood was all over and the sore on his rt luna sore was bleeding. And he takes apart his heated high flow. Complete bed changed x 2. He has had periods of sleep.
[2021-10-24 07:48] LABS: HEMATOCRIT 42.4 % (42.0-52.0); HEMOGLOBIN 14.2 gm/dL (14.0-18.0); MCH 28.6 pg (26.0-34.0); MCHC 33.6 g/dL (28.0-37.0); MCV 85.3 fL (80.0-100.0); PLATELET COUNT* 208 thou/uL (150-400); RBC 4.97 mil/uL (4.50-6.00); RDW-CV 15.3 % (10.5-14.5); WBC 8.4 thou/uL (4.0-11.0)
[2021-10-24 08:00] VITALS: BP 170/88
[2021-10-24 08:01] LABS: ALBUMIN 2.5 g/dL (3.4-5.0); CALCIUM 8.3 mg/dL (8.5-10.1); CREATININE 1.4 mg/dL (0.6-1.3); MAGNESIUM 2.3 mg/dL (1.8-2.4); POTASSIUM 3.4 mmol/L (3.5-5.1); TOTAL BILIRUBIN 0.6 mg/dL (<0.1-1.0); TOTAL PROTEIN 6.4 g/dL (6.4-8.2)
[2021-10-24 12:03] LABS: BASOPHILS 0.2 %; LYMPHOCYTES 2.2 %; MONOCYTES 6.2 %; NUCLEATED RBCS 0 /100WBC; POLYS 91.4 %
[2021-10-24 12:07] LABS: ABSOLUTE LYMPHOCYTES 0.2 thou/uL (0.8-5.3); ABSOLUTE MONOCYTES 0.5 thou/uL (0.0-1.2)
[2021-10-24 16:00] VITALS: BP 143/91
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
[2021-10-24 19:45] VITALS: BP 181/93
--- NOTE | 2021-10-24 20:55 | NUR ---
SPOKE WITH DR CHUNG; DR CHUNG HAD 1:1 CONVERSATION WITH PATIENT REGARDING KEEPING HIS MASK ON AND TRYING TO BE COMPLIANT; WITH 1:1 PT ABLE TO REDIRECT; PER DR CHUNG PLAN IS IF NEEDED SOFT WRIST RESTRAINTS; WILL CONTACT DR CHUNG IF INTERVENTION REQUIRED
[2021-10-25] VITALS (15 sets, daily range): BP systolic 101–222; BP diastolic 69–130
--- NOTE | 2021-10-25 02:52 | NUR ---
ASSUMED CARE OF PT AT 1900. PT IS VERY CONFUSED. PT IS PULLING ON HIS LORENZO AND TAKING HIS BIPAP OFF. PT DESAT INTO THE LOW 70'S. AT ABOUT 2129, PT WAS PLACED IN SOFT WRIST RESTRAINTS. PT WAS ALSO PUT ON HEATED HIGH FLOW WITH A NONREBREATHER MASK. PT IS IN SINUS RYTHM ON THE TELEMETRY. PT IS RESTING COMFORTABLY IN BED. RESPIRATIONS ARE EVEN AND NONLABORED. WILL CONTINUE TO MONITOR PT.
[2021-10-25 14:21] LABS: HEMATOCRIT 41.6 % (42.0-52.0); HEMOGLOBIN 13.5 gm/dL (14.0-18.0); MCH 28.2 pg (26.0-34.0); MCHC 32.4 g/dL (28.0-37.0); MCV 87.2 fL (80.0-100.0); MPV 9.9 fl. (7.2-11.1); NUCLEATED RBCS 0 /100WBC; PLATELET COUNT* 222 thou/uL (150-400); RBC 4.77 mil/uL (4.50-6.00); RDW-CV 15.5 % (10.5-14.5); WBC 11.5 thou/uL (4.0-11.0)
[2021-10-25 14:29] LABS: ALBUMIN 2.6 g/dL (3.4-5.0); CALCIUM 8.7 mg/dL (8.5-10.1); CREATININE 1.5 mg/dL (0.6-1.3); POTASSIUM 3.6 mmol/L (3.5-5.1); TOTAL BILIRUBIN 0.7 mg/dL (<0.1-1.0); TOTAL PROTEIN 6.4 g/dL (6.4-8.2)
[2021-10-25 14:47] LABS: ABSOLUTE LYMPHOCYTES 0.2 thou/uL (0.8-5.3); ABSOLUTE MONOCYTES 0.2 thou/uL (0.0-1.2)
[2021-10-25 14:48] LABS: PLATELET ESTIMATE ADEQUATE
--- NOTE | 2021-10-25 17:36 | NUR ---
CM FOLLOWUP PT NOT MED CLEAR AND ON HIFLOW O2. CM TO FOLLOW FOR DC NEEDS.
[2021-10-25 18:40] LABS: BE -6.5 mmol/L (-2 to +3); pH 7.332 (7.340-7.450)
[2021-10-26] VITALS (28 sets, daily range): BP systolic 95–158; BP diastolic 46–79
[2021-10-26 06:06] LABS: ABSOLUTE LYMPHOCYTES 0.1 thou/uL (0.8-5.3); ABSOLUTE MONOCYTES 0.2 thou/uL (0.0-1.2); ABSOLUTE NEUTROPHILS 8.4 thou/uL (1.6-8.1); BASOPHILS 0.1 %; LYMPHOCYTES 1.3 %; MCH 28.9 pg (26.0-34.0); MCHC 32.9 g/dL (28.0-37.0); MONOCYTES 2.1 %; MPV 9.6 fl. (7.2-11.1); NUCLEATED RBCS 0 /100WBC; PLATELET COUNT* 187 thou/uL (150-400); POLYS 96.5 %; RBC 3.98 mil/uL (4.50-6.00); RDW-CV 15.7 % (10.5-14.5); WBC 8.7 thou/uL (4.0-11.0)
[2021-10-26 06:17] LABS: APTT 32.8 Seconds (25.0-31.3); INR 1.3; PROTIME 13.5 Seconds (9.20-11.50)
[2021-10-26 06:34] LABS: HEMOGLOBIN 11.5 gm/dL (14.0-18.0)
[2021-10-26 06:43] LABS: ALBUMIN 2.1 g/dL (3.4-5.0); CREATININE 1.5 mg/dL (0.6-1.3); MAGNESIUM 2.3 mg/dL (1.8-2.4); POTASSIUM 3.9 mmol/L (3.5-5.1); TOTAL BILIRUBIN 0.6 mg/dL (<0.1-1.0); TOTAL PROTEIN 5.3 g/dL (6.4-8.2)
[2021-10-26 06:57] LABS: PHOSPHORUS* 3.4 mg/dL (2.5-4.9)
[2021-10-26 08:55] LABS: BE -4.2 mmol/L (-2 to +3); PCO2 38.3 mmHg (35.0-45.0); pH 7.355 (7.340-7.450)
[2021-10-26 08:58] LABS: PO2 135.5 mmHg (75.0-100.0)
--- NOTE | 2021-10-26 17:25 | NUR ---
CM FOLLOWUP PT NOT MED CLEAR AND ON VENT. CM TO FOLLOW FOR FUTURE DC NEEDS.
[2021-10-27] VITALS (20 sets, daily range): BP systolic 124–145; BP diastolic 61–78
[2021-10-27 05:08] LABS: HEMOGLOBIN 11.2 gm/dL (14.0-18.0); MCH 28.7 pg (26.0-34.0); MCHC 32.8 g/dL (28.0-37.0); MCV 87.3 fL (80.0-100.0); MPV 9.3 fl. (7.2-11.1); NUCLEATED RBCS 0 /100WBC; PLATELET COUNT* 156 thou/uL (150-400); RDW-CV 15.2 % (10.5-14.5); WBC 8.1 thou/uL (4.0-11.0)
[2021-10-27 05:19] LABS: ALBUMIN 1.9 g/dL (3.4-5.0); CALCIUM 8.2 mg/dL (8.5-10.1); CREATININE 1.5 mg/dL (0.6-1.3); MAGNESIUM 2.3 mg/dL (1.8-2.4); POTASSIUM 3.9 mmol/L (3.5-5.1); TOTAL BILIRUBIN 0.5 mg/dL (<0.1-1.0); TOTAL PROTEIN 5.1 g/dL (6.4-8.2)
[2021-10-27 05:26] LABS: PHOSPHORUS* 2.7 mg/dL (2.5-4.9)
[2021-10-27 06:57] LABS: ABSOLUTE LYMPHOCYTES 0.4 thou/uL (0.8-5.3); ABSOLUTE MONOCYTES 0.2 thou/uL (0.0-1.2); ABSOLUTE NEUTROPHILS 7.5 thou/uL (1.6-8.1); LARGE PLATELETS RARE; PLATELET ESTIMATE ADEQUATE
--- NOTE | 2021-10-27 17:21 | NUR ---
CM FOLLOWUP PT NOT MED CLEAR AND ON VENT. CM TO FOLLOW FOR FUTURE DC NEEDS.
--- NOTE | 2021-10-27 20:00 | NUR ---
Assumed care around 0730 following report. Patient in on ventilator and sedated. Reposition patient every 2 hours. Patient has tube feeding going at 35ml per hour. patient tolerating this well. Patient has sores mainly on his right leg from falling at home. 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 Patients breath sounds are coarse, and suction thick sputum about every 2 hours. Gomez output is good. Continue to monitor patient closely.
[2021-10-28] VITALS (23 sets, daily range): BP systolic 115–153; BP diastolic 66–86
[2021-10-28 04:25] LABS: ABSOLUTE LYMPHOCYTES 0.2 thou/uL (0.8-5.3); ABSOLUTE MONOCYTES 0.3 thou/uL (0.0-1.2); ABSOLUTE NEUTROPHILS 9.1 thou/uL (1.6-8.1); BASOPHILS 0.3 %; HEMATOCRIT 35.5 % (42.0-52.0); HEMOGLOBIN 11.7 gm/dL (14.0-18.0); LYMPHOCYTES 1.9 %; MCH 28.9 pg (26.0-34.0); MCHC 33.1 g/dL (28.0-37.0); MCV 87.5 fL (80.0-100.0); MPV 9.4 fl. (7.2-11.1); NUCLEATED RBCS 0 /100WBC; PLATELET COUNT* 147 thou/uL (150-400); POLYS 94.8 %; RBC 4.05 mil/uL (4.50-6.00); RDW-CV 15.4 % (10.5-14.5); WBC 9.6 thou/uL (4.0-11.0)
[2021-10-28 04:45] LABS: PHOSPHORUS* 2.5 mg/dL (2.5-4.9)
[2021-10-28 05:00] LABS: ALBUMIN 1.9 g/dL (3.4-5.0); CALCIUM 8.4 mg/dL (8.5-10.1); CREATININE 1.2 mg/dL (0.6-1.3); MAGNESIUM 1.9 mg/dL (1.8-2.4); POTASSIUM 4.4 mmol/L (3.5-5.1); TOTAL BILIRUBIN 0.5 mg/dL (<0.1-1.0); TOTAL PROTEIN 4.8 g/dL (6.4-8.2)
[2021-10-28 08:25] LABS: BE -2.8 mmol/L (-2 to +3); PCO2 38.1 mmHg (35.0-45.0); PO2 97.8 mmHg (75.0-100.0); pH 7.378 (7.340-7.450)
--- NOTE | 2021-10-28 16:31 | NUR ---
DR BAUTISTA WANTS TO BEGIN PRECEDEX AND GRADUALLY WEAN VERSED.
--- NOTE | 2021-10-28 17:29 | NUR ---
CM FOLLOWUP PT NOT MED CLEAR AND ON VENT. CM TO FOLLOW FOR FUTURE DC NEEDS.
--- NOTE | 2021-10-28 20:18 | NUR ---
Assumed care of patient 0700 to 1900. Patient remains intubated and on ventilator. Also is sedated with fentanyl and versed drips. Patient has right dl pic right upper arm. patient has og that is patient and infusing 2cal hn at 35ml per hour. boluses of water 200ml every 4 hours. tolates well. at 1800 patient given albumin 100ml as ordered. will follow with lasix ivp. also dr sanchez was here and wants to start precedex drip and wean versed drip down. good urinary output. patient had fair day.
[2021-10-29] VITALS (26 sets, daily range): BP systolic 101–139; BP diastolic 51–79
--- NOTE | 2021-10-29 03:22 | NUR ---
ASSUMED CARE OF PT AT 1915. PT SEDATED- WITH ONGOING FENTANYL & VERSED DRIP.PT TRACING SR/SB-HR 40'S-60'S. VSS. PHYSICAL ASSESSMENT COMPLETED AND CHARTED. PT WITH EPISODE OF INCONTINENT BOWEL WITH LIQUIDY STOOL -DARK GREEN IN COLOR. PT WITH OGT-PATENT & INTACT-ON CONTINUOUS FEEDING OF 2CAL HN AT 35 MLS/HE & 200 MLS FREE WATER FLUSHES [id number] WELL. UNABLE TO START PRECEDEX DRIP PT WITH EPISODES OF BRADYCARDIA-HIGH 40'S TO 60'S-DR BAUTISTA MADE AWARE. TURNED TO SIDES. FALL PRECAUTIONS IN PLACE.
[2021-10-29 05:24] LABS: ABSOLUTE LYMPHOCYTES 0.3 thou/uL (0.8-5.3); ABSOLUTE MONOCYTES 0.4 thou/uL (0.0-1.2); BASOPHILS 0.1 %; HEMATOCRIT 38.7 % (42.0-52.0); HEMOGLOBIN 12.6 gm/dL (14.0-18.0); LYMPHOCYTES 3.3 %; MCH 28.2 pg (26.0-34.0); MCHC 32.5 g/dL (28.0-37.0); MCV 86.7 fL (80.0-100.0); MONOCYTES 4.3 %; NUCLEATED RBCS 0 /100WBC; PLATELET COUNT* 110 thou/uL (150-400); POLYS 92.3 %; RBC 4.47 mil/uL (4.50-6.00); RDW-CV 14.9 % (10.5-14.5); WBC 8.6 thou/uL (4.0-11.0)
[2021-10-29 05:43] LABS: ALBUMIN 2.4 g/dL (3.4-5.0); CALCIUM 8.4 mg/dL (8.5-10.1); CREATININE 1.3 mg/dL (0.6-1.3); MAGNESIUM 1.8 mg/dL (1.8-2.4); POTASSIUM 3.9 mmol/L (3.5-5.1); TOTAL BILIRUBIN 0.6 mg/dL (<0.1-1.0); TOTAL PROTEIN 5.1 g/dL (6.4-8.2)
[2021-10-29 05:45] LABS: PHOSPHORUS* 3.6 mg/dL (2.5-4.9)
[2021-10-29 08:21] LABS: BE -2.2 mmol/L (-2 to +3); PCO2 37.4 mmHg (35.0-45.0); PO2 70.2 mmHg (75.0-100.0); pH 7.394 (7.340-7.450)
--- NOTE | 2021-10-29 16:19 | NUR ---
CM FOLLOWUP PT NOT MED CLEAR AND ON VENT. CM TO FOLLOW FOR FUTURE DC NEEDS.
[2021-10-30] VITALS (23 sets, daily range): BP systolic 109–164; BP diastolic 5–93
--- NOTE | 2021-10-30 05:40 | NUR ---
ASSUMED CARE OF PT AT 1915. PT SEDATED- WITH ONGOING FENTANYL & VERSED DRIP. STARTED ON PRECEDEX DRIP ORDERED-TITRATED PER PROTOCOL. ABLE TO WEAN VERSED. PT TRACING SR/SB-HR 50'S-60'S. VSS. PHYSICAL ASSESSMENT COMPLETED AND CHARTED. PT WITH EPISODE OF INCONTINENT BOWEL WITH LIQUIDY STOOL -DARK BROWN & GREEN IN COLOR. PT WITH OGT PATENT & INTACT-ON CONTINUOUS FEEDING OF 2CAL HN AT 40 MLS/HR &150 MLS FREE WATER FLUSHES [id number] WELL. TURNED TO SIDES. FALL PRECAUTIONS IN PLACE.
[2021-10-30 12:13] LABS: ABSOLUTE LYMPHOCYTES 0.2 thou/uL (0.8-5.3); ABSOLUTE MONOCYTES 0.3 thou/uL (0.0-1.2); ABSOLUTE NEUTROPHILS 8.5 thou/uL (1.6-8.1); BASOPHILS 0.1 %; HEMATOCRIT 33.1 % (42.0-52.0); LYMPHOCYTES 2.1 %; MCHC 33.3 g/dL (28.0-37.0); MONOCYTES 3.7 %; MPV 11.1 fl. (7.2-11.1); NUCLEATED RBCS 0 /100WBC; PLATELET COUNT* 113 thou/uL (150-400); POLYS 94.1 %; RBC 3.81 mil/uL (4.50-6.00); RDW-CV 14.9 % (10.5-14.5); WBC 9.1 thou/uL (4.0-11.0)
[2021-10-30 12:22] LABS: ALBUMIN 2.8 g/dL (3.4-5.0); CALCIUM 8.5 mg/dL (8.5-10.1); CREATININE 1.1 mg/dL (0.6-1.3); POTASSIUM 4.3 mmol/L (3.5-5.1); TOTAL BILIRUBIN 0.6 mg/dL (<0.1-1.0); TOTAL PROTEIN 4.9 g/dL (6.4-8.2)
[2021-10-31] VITALS (58 sets, daily range): BP systolic 63–155; BP diastolic 37–95
--- NOTE | 2021-10-31 03:42 | NUR ---
ASSUMED CARE OF PT AFTER REPORT AT 1930. PT SEDATED WITH FENTANYL & PRECEDEX. VSS. PHYSICAL ASSESSMENT COMPLETED AND CHARTED. PT TRACING SR ON TELE. PT WITH ET TUBE TO MECHANICAL VENTILATOR. PT WITH OGT TUBE TO CONT FEEDING-TOLERATED WELL. PT WITH EPISODE OF INCONTINENT BOWEL. FALL PRECAUTIONS IN PLACE.
[2021-10-31 11:58] LABS: BE -6.2 mmol/L (-2 to +3); PCO2 42.2 mmHg (35.0-45.0); PO2 91.7 mmHg (75.0-100.0)
[2021-10-31 12:03] LABS: pH 7.294 (7.340-7.450)
[2021-10-31 12:06] LABS: CALCIUM 8.9 mg/dL (8.5-10.1); CREATININE 1.3 mg/dL (0.6-1.3); POTASSIUM 4.4 mmol/L (3.5-5.1)
[2021-10-31 12:50] LABS: BASOPHILS 0.2 %; EOSINOPHILS 0.1 %; HEMATOCRIT 42.6 % (42.0-52.0); MCH 28.4 pg (26.0-34.0); MCHC 32.3 g/dL (28.0-37.0); MPV 10.9 fl. (7.2-11.1); NUCLEATED RBCS 0 /100WBC; PLATELET COUNT* 160 thou/uL (150-400); POLYS 91.7 %; RBC 4.84 mil/uL (4.50-6.00); RDW-CV 15.3 % (10.5-14.5)
[2021-10-31 12:53] LABS: ABSOLUTE BASOPHILS 0.1 thou/uL (0.0-0.2); ABSOLUTE LYMPHOCYTES 2.8 thou/uL (0.8-5.3); ABSOLUTE MONOCYTES 0.9 thou/uL (0.0-1.2)
[2021-10-31 12:54] LABS: HEMOGLOBIN 13.8 gm/dL (14.0-18.0)
[2021-10-31 12:56] LABS: WBC 46.9 thou/uL (4.0-11.0)
--- NOTE | 2021-10-31 13:48 | NUR ---
CRITICAL LAB WBC 46.9 RECEIVED BY LAB TO THIS RN AT 9691. THIS RN TOLD TEE,BEDSIDE RN AT 2517. [facility] RESULT ON BEHALF OF TEE 8918.
--- NOTE | 2021-10-31 14:05 | NUR ---
called family to update on change in status.
[2021-10-31 14:40] LABS: HEMOGLOBIN 13.1 gm/dL (14.0-18.0); MCH 28.3 pg (26.0-34.0); MCHC 31.8 g/dL (28.0-37.0); MCV 88.8 fL (80.0-100.0); MPV 11.4 fl. (7.2-11.1); NUCLEATED RBCS 0 /100WBC; PLATELET COUNT* 152 thou/uL (150-400); RBC 4.62 mil/uL (4.50-6.00); RDW-CV 15.7 % (10.5-14.5)
[2021-10-31 14:46] LABS: WBC 47.4 thou/uL (4.0-11.0)
[2021-10-31 14:51] LABS: APTT 33.9 Seconds (25.0-31.3); INR 1.5; PROTIME 15.1 Seconds (9.20-11.50)
[2021-10-31 15:09] LABS: CALCIUM 8.7 mg/dL (8.5-10.1)
[2021-10-31 15:13] LABS: ALBUMIN 2.4 g/dL (3.4-5.0); MAGNESIUM 2.3 mg/dL (1.8-2.4); TOTAL BILIRUBIN 0.7 mg/dL (<0.1-1.0); TOTAL PROTEIN 5.3 g/dL (6.4-8.2)
[2021-10-31 15:15] LABS: CREATININE 2.7 mg/dL (0.6-1.3)
[2021-10-31 15:16] LABS: POTASSIUM 6.1 mmol/L (3.5-5.1)
[2021-10-31 15:18] LABS: ABSOLUTE LYMPHOCYTES 2.8 thou/uL (0.8-5.3); ABSOLUTE MONOCYTES 1.9 thou/uL (0.0-1.2); ABSOLUTE NEUTROPHILS 42.7 thou/uL (1.6-8.1); PLATELET ESTIMATE ADEQUATE
[2021-10-31 15:48] LABS: BE -1.2 mmol/L (-2 to +3); PCO2 37.9 mmHg (35.0-45.0); pH 7.405 (7.340-7.450)
[2021-10-31 15:51] LABS: PO2 187.2 mmHg (75.0-100.0)
--- NOTE | 2021-10-31 20:30 | NUR ---
At beginning of shift, pt appears to be stable and on same vent settings from previous day except O2 setting at 60% FIO2, which is up from 50%. RR began to increase to upper 20s. Then HR began to rise >100. Midazolam IVP given per PRN order, but no reduction in HR or RR. Temp 101, acetaminophen given. Temp did go down, but then went back up to 102. RR up to low 30s and HR 110s-120s. Dr. Faustin informed of change, orders received. RT noted what appeared to be tube feeding when suctioned. TF stopped, CXR ordered. CXR showed some improvement from yesterday per radiologist report. HR continues to rise. More orders received including orders from Dr. Watts to start Scott-synephrine and Propofol to manage tachypnea/tachycardia while preventing BP drop. However, BP began to drop before Propofol started, down to 50s-60s/30s. Scott started and soon up to max dosing before stabilizing BP. Pt moved to ICU at 1500, received two doses NaHCO3 prior to transfer, and two more doses after arrival to ICU. Davon Faustin and Mikayla (ER) had given multiple medication and lab orders during this time (approx [phone]). Multiple consults ordered including Cardiology and Nephrology. Pt's heart rhythm had been ST, then Afib with BBB, then later SR with BBB with diltiazem gtt. Art line was placed per Dr. Cardenas after arrival to ICU. Multiple medication orders received, however, timing and administration has been complicated by limited venous access, limited to double-lumen PICC line. Attempts made to establish peripheral IV access due to inability to start insulin gtt and IVF containing NaHCO3. Also, pressers and sedation occupying one of the two lumens leaving the other lumen for multiple IV abx, NS boluses, albumin, and Calcium gluconate. Kayexalate also ordered to be administered rectally, but have not administered due to BP status. Pt's family members visited this afternoon, including and nephew who arrived before pt transferred to ICU, and son and one other visitor who arrived shorlty after his arrival to ICU. Will continue to monitor.
[2021-10-31 22:44] LABS: ALBUMIN 2.4 g/dL (3.4-5.0); CALCIUM 7.7 mg/dL (8.5-10.1); MAGNESIUM 2.5 mg/dL (1.8-2.4); TOTAL BILIRUBIN 2.3 mg/dL (<0.1-1.0); TOTAL PROTEIN 5.4 g/dL (6.4-8.2)
[2021-10-31 22:46] LABS: CREATININE 3.8 mg/dL (0.6-1.3)
[2021-10-31 22:48] LABS: POTASSIUM 7.8 mmol/L (3.5-5.1)
[2021-10-31 23:43] LABS: BE -20.2 mmol/L (-2 to +3); PCO2 38.4 mmHg (35.0-45.0); pH 7.029 (7.340-7.450)
[2021-10-31 23:44] LABS: PO2 134.3 mmHg (75.0-100.0)
--- NOTE | 2021-11-01 01:48 | NUR ---
1.16.22- PT TIME OF 2330. PT EXTUBATED AT 2335. FAMILY AND PROVIDER NOTIFIED.
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
--- NOTE | 2021-11-01 10:33 | EKG ---
[place] [address] ELECTROCARDIOGRAM REPORT Name: HEATH LAWRENCE Room: [address] IN M.R.#: [id number] Admission: 10/18/21 Attend Phys: Jason Faustin Discharge: 11/01/21 Date of : 53 Date of Service: 10/31/21 1417 Report #: [id number] THIS REPORT FOR: //name// [facility] Test Date: 2021-10-31 Test Time: 14:17:58 Pat Name: HEATH LAWRENCE Department: Room: [facility] Gender: M Department Editor: dot : 1955 Requested By: Jason Faustin Order Number: [id number] Reading MD: Heath Wei Measurements Intervals [place] Rate: 123 P: NE: QRS: -3 QRSD: 144 T: 165 QT: 350 QTc: 501 Interpretive Statements Atrial fibrillation Left bundle branch block Compared to ECG 04/28/2021 10:21:03 Left bundle-branch block now present rate has slowed Electronically Signed On 11-01-2021 10:33:30 PUTTIER by Heath Wei [email or web address] <ELECTRONICALLY SIGNED> By: Heath Wei MD, FAC 11/01/21 1033 1417 1417 Heath Wei MD, [facility] /EPI
--- NOTE | 2021-11-01 10:35 | EKG ---
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1955 Requested By: Jason Faustin Order Number: [id number] Vy MD: Heath Wei Measurements Intervals [place] Rate: 114 P: -77 MO: 147 QRS: 39 QRSD: 107 T: 232 QT: 300 QTc: 414 Interpretive Statements Sinus or ectopic atrial tachycardia LEFT VENTRICULAR HYPERTROPHY with repolarization ST depression, consider ischemia, diffuse lds Compared to ECG 10/31/2021 14:17:58 LEFT BUNDLE BRANCH BLOCK no longer seen Atrial fibrillation no longer present Electronically Signed On 11-01-2021 10:34:51 CIRCUS ARTIST by Heath Wei [email or web address] <ELECTRONICALLY SIGNED> By: Heath Wei MD, FACC 11/01/21 1034 1540 1540 Heath Wei MD, FAC /EPI
== END 2021-11-01 03:55 | DRG 870 ==
LOC: M.ERS 16:01 → M.TBA-ER 18:01 → M.ORTHSURG 18:01 → M.TBA-ER 23:37 → M.ORTHSURG 10-19 18:24 → M.ICU 10-31 15:00
PROVIDERS: Internal Medicine; Internal Medicine Critical Care Medicine; Physician Assistant; ADMIT Internal Medicine; ATTEND Internal Medicine
PROC: XW033E5 Introduction of Remdesivir Anti-infective into Peripheral Vein, Percutaneous Approach, New Technology Group 5 (ICD-10-PCS; principal; 2021-10-19)
PROC: 5A0935A Assistance with Respiratory Ventilation, Less than 24 Consecutive Hours, High Flow/Velocity Cannula (ICD-10-PCS; 2021-10-20)
PROC: 5A0935A Assistance with Respiratory Ventilation, Less than 24 Consecutive Hours, High Flow/Velocity Cannula (ICD-10-PCS; 2021-10-21)
PROC: 02HV33Z Insertion of Infusion Device into Superior Vena Cava, Percutaneous Approach (ICD-10-PCS; 2021-10-21)
PROC: 5A09357 Assistance with Respiratory Ventilation, Less than 24 Consecutive Hours, Continuous Positive Airway Pressure (ICD-10-PCS; 2021-10-22)
PROC: 5A0935A Assistance with Respiratory Ventilation, Less than 24 Consecutive Hours, High Flow/Velocity Cannula (ICD-10-PCS; 2021-10-22)
PROC: 5A0935A Assistance with Respiratory Ventilation, Less than 24 Consecutive Hours, High Flow/Velocity Cannula (ICD-10-PCS; 2021-10-23)
PROC: 5A09357 Assistance with Respiratory Ventilation, Less than 24 Consecutive Hours, Continuous Positive Airway Pressure (ICD-10-PCS; 2021-10-23)
PROC: 5A0935A Assistance with Respiratory Ventilation, Less than 24 Consecutive Hours, High Flow/Velocity Cannula (ICD-10-PCS; 2021-10-24)
PROC: 5A09357 Assistance with Respiratory Ventilation, Less than 24 Consecutive Hours, Continuous Positive Airway Pressure (ICD-10-PCS; 2021-10-24)
PROC: 5A09357 Assistance with Respiratory Ventilation, Less than 24 Consecutive Hours, Continuous Positive Airway Pressure (ICD-10-PCS; 2021-10-25)
PROC: 0BH17EZ Insertion of Endotracheal Airway into Trachea, Via Natural or Artificial Opening (ICD-10-PCS; 2021-10-25)
PROC: 5A1955Z Respiratory Ventilation, Greater than 96 Consecutive Hours (ICD-10-PCS; 2021-10-25)
PROC: 03HY32Z Insertion of Monitoring Device into Upper Artery, Percutaneous Approach (ICD-10-PCS; 2021-10-31)
DX: A41.89 Other specified sepsis (principal); U07.1 COVID-19; J96.01 Acute respiratory failure with hypoxia; N17.0 Acute kidney failure with tubular necrosis; J12.82 Pneumonia due to coronavirus disease 2019; I21.4 Non-ST elevation (NSTEMI) myocardial infarction; N39.0 Urinary tract infection, site not specified; N31.9 Neuromuscular dysfunction of bladder, unspecified; I10 Essential (primary) hypertension; G62.9 Polyneuropathy, unspecified; D64.9 Anemia, unspecified; R73.9 Hyperglycemia, unspecified; J98.01 Acute bronchospasm; Z96.651 Presence of right artificial knee joint; I95.9 Hypotension, unspecified; Z79.82 Long term (current) use of aspirin; Z79.899 Other long term (current) drug therapy